=== PATIENT | male | born 1970 | race Caucasian/White ===

== ENCOUNTER 2016-12-15 13:04 | Inpatient (IN) | payer SELFPAY ==
--- NOTE | ~2016-12-15 | PA ---
Unit #: [id number] #: [id number] Patient: DEONNA SHEFFIELD [id number] [facility] [address] [place] [address] [id number] MR#: [id number] NAME: DEONNA SHEFFIELD ROOM: P132 Age: 46 Sex: M Admission Date: 12/15/2016 : 1970 Date of Assessment: Attending Physician: Eloina Escamilla M.D. Admitting Physician: Eloina Escamilla M.D. Primary Care Physician: Generic Doctor Not In System PSYCHIATRIC ASSESSMENT DATE OF SERVICE 12/15/2016. IDENTIFYING DATA Mr. Sheffield is a 46-year-old white male, who is a resident of [place], [place], and was referred to us from the [facility]. CHIEF COMPLAINT "I have seen all I want to see, I have done all that I want to do, I just don't care to be here anymore." HISTORY OF PRESENT ILLNESS A 46-year-old white male, who was transferred to us from the [facility], where he presented with increasing depression and voicing suicidal ideations, and the patient dropped off a letter to his ex-girlfriend's house and she called the police and the patient states that he chose to drive himself to the ER to avoid a scene at his grandmother's house and the patient stated that he wanted to shoot himself in the head, but did not want to mess up his grandmother's home and stated "I have been using my coping skills and have not had to use medicines for about 4 years. 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 He lives with his grandmother and states that he has not had any issues and was unable to identify any triggers or stressors, though he reports a long history of mood disorder and currently endorses worsening depression with disturbed sleep, psychomotor retardation, feelings of hopelessness and helplessness, and suicidal ideation. SUBSTANCE ABUSE HISTORY The patient denies any alcohol or drug abuse. PAST PSYCHIATRIC HISTORY The patient has not had any prior inpatient or outpatient psychiatric treatment. Review of the medical records indicate that currently he is not seeing a psychiatrist and is not taking any psychotropic medications. PAST MEDICAL HISTORY Diabetes mellitus. ALLERGIES Unit #: [id number] #: [id number] Patient: DEONNA SHEFFIELD No known medication allergies. PERSONAL AND SOCIAL HISTORY A 46-year-old white male, who reports that he is and lives with his grandmother and is employed and has fairly decent social support system. MENTAL STATUS EXAMINATION Middle-aged white male, who was casually dressed with fair personal hygiene, appears to be in no acute distress or discomfort. He was awake and alert on interaction with intact orientation to time, place, and person. His mood was anxious and depressed with a congruent affect. His speech was slow and goal directed. He reports having suicidal ideations, but denies any homicidal ideations and also denies any auditory or visual hallucinations. His insight and judgment remain significantly impaired. DIAGNOSTIC IMPRESSION Psychiatric: Major depressive disorder, recurrent, moderate, without psychotic features. Medical: Diabetes mellitus, hypertension. Stressors: Moderate psychosocial stressors. TREATMENT PLAN 1. The patient has presented with a history of mood disorder and has been decompensating and will need inpatient hospitalization for safety and stabilization. We will start him back on his home medications and we will adjust the medications and monitor response. 2. Supportive therapy was provided to the patient. 3. Safe, structured, and nourishing environment will be provided. ESTIMATED LENGTH OF STAY 5 to 7 days. ABILITY TO HELP SELF Limited. WILLINGNESS TO HELP SELF The patient appears to be willing to help self. STRENGTHS 1. Communicative. 2. Cooperative. PROBLEMS 1. Chronic dysphoric symptoms. 2. Poor social support system. DISCHARGE CRITERIA This will be contingent upon the patient's ability to show resolution of his depression and anxiety and his ability to stay safe to himself and others, particularly after discharge from the hospital. Dictated by... Eloina Escamilla M.D. RAFAT/adan Unit #: [id number] #: [id number] Patient: DEONNA SHEFFIELD TD: 12/16/2016 14:57 JOB #: [id number] PSYCHIATRIC ASSESSMENT X Eloina Escamilla MD PSYCHIATRIC ASSESSMENT
--- NOTE | ~2016-12-15 | HP ---
Unit #: [id number] #: [id number] Patient: DEONNA SHEFFIELD [id number] [place] [address] [id number] I MR#: [id number] NAME: DEONNA SHEFFIELD. ROOM: P132 Age: 46 Sex: M Admission Date: 12/15/2016 : 1970 Attending Physician: Eloina Escamilla M.D. Admitting Physician: Eloina Escamilla M.D. Primary Care Physician: Generic Doctor Not In System HISTORY AND PHYSICAL HISTORY OF PRESENT ILLNESS Deonna is a 46 year old admitted to [address] [place] [address] with depression and verbalizing wanting to hurt himself. PAST MEDICAL HISTORY 1. Obesity. 2. Diabetes mellitus. 3. History of cat scratch fever. PAST SURGICAL HISTORY 1. Cervical disc. 2. T & A. ALLERGIES No known drug allergies. SOCIAL HISTORY Smokes E-cigarettes, drinks alcohol socially. Denies illicit drug use. FAMILY HISTORY Medically noncontributory. REVIEW OF SYSTEMS CONSTITUTIONAL: No fever or chills. HEENT: Denies any sore throat, ear pain or runny nose. CARDIOVASCULAR: Denies chest pain, irregular heart rhythm or palpitations. CHEST: Denies shortness of breath or cough. No hemoptysis. GASTROINTESTINAL: Denies nausea, vomiting, diarrhea or chronic constipation. ENDOCRINE: Denies history of increased thirst or urination. No recent significant weight loss or gain. GENITOURINARY: Denies dysuria, frequency, or hematuria. SKIN: Denies any rashes. HEMATOLOGIC: Denies history of increased bleeding or bruising. MUSCULOSKELETAL: Denies any hot, swollen joints. No generalized muscle pain. NEUROLOGIC: Denies problems with vision or speech. No frequent, severe headaches. No numbness, tingling or weakness in any extremities. Denies loss of bladder or bowel control. CURRENT MEDICATIONS 1. Desyrel 100 mg q.h.s. Unit #: [id number] #: [id number] Patient: DEONNA SHEFFIELD 2. Vistaril p.r.n. 3. Milk of Magnesia p.r.n. 4. Maalox p.r.n. 5. Tylenol p.r.n. 6. Nicotine patch 14 mg daily PHYSICAL EXAMINATION GENERAL: Alert, obese, in no apparent distress. VITAL SIGNS: Blood pressure 140/70, heart rate 88, respirations 16, temperature 98.6. WEIGHT: 140 pounds. HEIGHT: 5'9". SKIN: Warm and dry without rash or lesion. HEENT: Normocephalic. TMs not viewed. Oral and nasal passages clear. Conjunctivae clear. Pupils equal, round and reactive to light and accommodation. Extraocular movements intact. NECK: Supple without lymphadenopathy or thyromegaly. HEART: Regular rate and rhythm without murmur. LUNGS: Clear. ABDOMEN: Soft, nontender. : Not done. EXTREMITIES: No evidence of cyanosis, clubbing or edema. Moves all extremities without focal deficit. NEUROLOGICAL: Grossly within normal limits. Cranial Nerves: II: Visual manzo are intact. III, IV AND : Extraocular movements are intact. Pupils are equal, round and reactive to light. V: Facial sensation is grossly normal. VII: Facial movements and expression are normal. VIII: Auditory acuity grossly intact. IX, X: Uvula is midline. Phonation is normal. XI: Patient shrugs shoulders and turns head normally. XII: Tongue protrudes in the midline. Sensory and Motor Function: Sensory and motor sensation is grossly normal. Motor: moves all extremities well. Coordination: Gait is normal. Deep Tendon Reflexes: Intact. IMPRESSION 1. Psychiatric admission. 2. Diabetes mellitus, diet controlled. RECOMMENDATIONS PSYCHIATRIC: Per psychiatrist. MEDICAL: I see no contraindications to participating in facility's activities. MEDICAL PROGNOSIS Good. MEDICAL CONDITION Stable. Dictated by... Merly Rdz P.A.-C. for Scot Scott M.D. Unit #: [id number] #: [id number] Patient: DEONNA SHEFFIELD ALEJO/arturo TD: 12/15/2016 20:24 JOB #: [id number] HISTORY AND PHYSICAL X Merly Rdz X HISTORY AND PHYSICAL
--- NOTE | ~2016-12-15 | PN ---
Unit #: [id number] #: [id number] Patient: DEONNA SHEFFIELD [id number] [facility] [address] [place] [address] [id number] I MR#: [id number] NAME: DEONNA SHEFFIELD. ROOM: P132 Age: 46 Sex: M Admission Date: 12/15/2016 : 1970 Attending Physician: Eloina Escamilla M.D. Admitting Physician: Eloina Escamilla M.D. Primary Care Physician: Generic Doctor Not In System [facility] PROGRESS NOTES DATE 12/17/2016 DISCUSSION Mr. Sheffield is a 46-year-old white male who was seen today and chart was reviewed and case was discussed with the staff. He has been doing fairly well with no agitation, irritability and has been cooperative with treatment recommendations as he has been taking the medications and tolerating them fairly well. MENTAL STATUS EXAMINATION Middle-aged white male who was casually dressed with fair personal hygiene and appears to be in no acute distress or discomfort. He was awake and alert on interactions with intact orientation. His mood was anxious with congruent affect. He denies any suicidal or homicidal ideations and also denies any auditory or visual hallucinations. His insight and judgement remains slightly impaired. TREATMENT PLAN 1. Will continue him on his current medications and treatment protocol. Will monitor his response and make further adjustments as needed. 2. Will continue to follow up. Dictated by... Eloina Escamilla M.D. IAA/marlena TD: 12/17/2016 17:54 JOB #: [id number] Unit #: [id number] #: [id number] Patient: DEONNA SHEFFIELD [facility] PROGRESS NOTES X Eloina Escamilla MD PROGRESS NOTE
--- NOTE | ~2016-12-15 | PN ---
Unit #: [id number] #: [id number] Patient: DEONNA SHEFFIELD [id number] [facility] [address] [place] [address] [id number] I MR#: [id number] NAME: DEONNA SHEFFIELD. ROOM: P132 Age: 46 Sex: M Admission Date: 12/15/2016 : 1970 Attending Physician: Eloina Escamilla M.D. Admitting Physician: Eloina Escamilla M.D. Primary Care Physician: Generic Doctor Not In System [facility] PROGRESS NOTES DATE 12/19/2016 DISCUSSION Mr. Sheffield is a 46-year-old, white male who was seen today and chart was reviewed and case was discussed with the staff. He has been anxious though has been doing much better with his depressive symptoms and has been calm and cooperative with the treatment recommendations. He has been taking the medication and tolerating them fairly well. MENTAL STATUS EXAM Middle-aged white male who was casually dressed with fair personal hygiene, appears to be in no acute distress or discomfort. He was awake and alert on interaction with intact orientation. His mood was anxious with congruent affect. He denies any suicidal or homicidal ideation. Also, denies any auditory or visual hallucinations. His insight and judgement remains slightly impaired. TREATMENT PLAN 1. We will continue him on his current treatment protocol. We will monitor his response to the medication and make further adjustments as needed. 2. We will continue to follow up. Dictated by... Flor Azevedo/arturo TD: 12/21/2016 03:45 JOB #: [id number] Unit #: [id number] #: [id number] Patient: DEONNA SHEFFIELD [facility] PROGRESS NOTES X Eloina Escamilla MD X PROGRESS NOTE
--- NOTE | ~2016-12-15 | PN ---
Unit #: [id number] #: [id number] Patient: DEONNA SHEFFIELD [id number] [facility] [address] [place] [address] [id number] I MR#: [id number] NAME: DEONNA SHEFFIELD. ROOM: P132 Age: 46 Sex: M Admission Date: 12/15/2016 : 1970 Attending Physician: Eloina Escamilla M.D. Admitting Physician: Eloina Escamilla M.D. Primary Care Physician: Generic Doctor Not In System [facility] PROGRESS NOTES DATE December 18, 2016 DISCUSSION Mr. Sheffield is a 46-year-old white male, who was seen today and chart was reviewed and the case was discussed with the staff. He has been anxious, withdrawn, and rather seclusive to himself. Meanwhile, he has been cooperative with the treatment recommendations and he has been taking the medications and tolerating them fairly well. MENTAL STATUS EXAMINATION Middle-aged white male, who was casually dressed with fair personal hygiene and appears to be in no acute distress or discomfort. He was awake and alert on interaction with intact orientation. His mood was anxious with a congruent affect. His speech is slow and goal-directed. He denies any suicidal or homicidal ideations, and also denies any auditory or visual hallucinations. His insight and judgment remain slightly impaired. TREATMENT PLAN 1. We will continue him on his current medications and treatment protocol, and will monitor his response to the medications, and make further adjustments as needed. 2. We will continue to followup. Dictated by... Flor Azevedo/vicky TD: 12/20/2016 12:55 JOB #: [id number] Unit #: [id number] #: [id number] Patient: DEONNA SHEFFIELD [facility] PROGRESS NOTES X Eloina Escamilla MD PROGRESS NOTE
--- NOTE | ~2016-12-15 | PN ---
Unit #: [id number] #: [id number] Patient: DEONNA SHEFFIELD [id number] [facility] [address] [place] [address] [id number] I MR#: [id number] NAME: DEONNA SHEFFIELD ROOM: P132 Age: 46 Sex: M Admission Date: 12/15/2016 : 1970 Attending Physician: Eloina Escamilla M.D. Admitting Physician: Eloina Escamilla M.D. Primary Care Physician: Generic Doctor Not In System [facility] PROGRESS NOTES DATE December 16, 2016 DISCUSSION Mr. Sheffield is a 46-year-old white male, who was seen today and chart was reviewed and the case was discussed with the staff. He has been anxious, withdrawn, and rather seclusive to himself. Meanwhile, he has been cooperative with the treatment recommendations and he has been taking the medications and tolerating them fairly well with no side effects. MENTAL STATUS EXAMINATION Middle-aged white male, who was casually dressed with fair personal hygiene and appears to be in no acute distress or discomfort. He was awake and alert on interaction with intact orientation. His mood is anxious with a congruent affect. He denies any suicidal or homicidal ideations. His insight and judgment remain slightly impaired. TREATMENT PLAN 1. We will continue him on his current treatment protocol, and will monitor his response to the medications, and make further adjustments as needed. 2. We will continue to followup. Dictated by... Flor Azevedo/vicky TD: 12/17/2016 05:44 JOB #: [id number] [facility] PROGRESS NOTES X Eloina Escamilla MD PROGRESS NOTE
--- NOTE | ~2016-12-15 | DS ---
Unit #: [id number] #: [id number] Patient: DEONNA SHEFFIELD [id number] [facility] [address] [place] [address] [id number] I MR#: [id number] NAME: DEONNA SHEFFIELD. ROOM: P132 Age: 46 Sex: M Admission Date: 12/15/2016 : 1970 Discharge Date: 12/20/2016 Attending Physician: Eloina Escamilla M.D. Primary Care Physician: Generic Doctor Not In System DISCHARGE SUMMARY IDENTIFYING DATA Mr. Cosme is a 46-year-old white male who was brought to the hospital as a referral from [facility]. DISCHARGE DIAGNOSES Psychiatric: Major depressive disorder, recurrent, moderate, without psychotic features. Medical: Diabetes mellitus and hypertension. Stressors: Moderate psychosocial stressors. HISTORY OF PRESENT ILLNESS Please see initial psychiatric evaluation for details. PAST PSYCHIATRIC HISTORY Please see initial psychiatric evaluation for details. PAST MEDICAL HISTORY Please see initial psychiatric evaluation for details. HOSPITAL COURSE The [facility] and was oriented to the hospital environment. Routine p.r.n. medications were initiated, and he was started back on his home medications and was exhibiting significant depressive symptoms upon presentation and therefore, Effexor and BuSpar were initiated and he was closely monitored. He was noticed to be actively trying to mask and minimize his symptoms and his suicidal thoughts, and was constantly focused and wanting to leave and was pushing, and has already been on 72-hours hold from the emergency room, which was maintained and once that , he refused to accept further inpatient stay treatment and was wanting to go home, but was willing to continue treatment on an outpatient basis and as such, it was decided that he will be maintained on his current treatment protocol. We will be discharged home and will continue treatment. DISCHARGE MEDICATIONS Effexor XR 75 mg in the evening for depression and BuSpar 10 mg b.i.d. for anxiety. DISCHARGE CONDITION Stable. PROGNOSIS Fair. Unit #: [id number] #: [id number] Patient: DEONNA SHEFFIELD Dictated by... Flor Azevedo/donatol TD: 12/20/2016 07:05 JOB #: [id number] DISCHARGE SUMMARY X Eloina Escamilla MD DISCHARGE SUMMARY
[2016-12-16 10:08] LABS: THYROID STIMULATING HORMONE 1.44 uIU/ml (0.34-5.60)
[2016-12-16 10:14] LABS: FREE THYROXIN (T4) 0.78 ng/dL (0.58-1.64)
== END 2016-12-20 10:20 | disposition home or self-care (01) | DRG 885 ==
LOC: P1S 13:04
PROVIDERS: Psychiatry & Neurology Psychiatry
DX: F33.1 Major depressive disorder, recurrent, moderate (principal); E11.9 Type 2 diabetes mellitus without complications; I10 Essential (primary) hypertension; F41.9 Anxiety disorder, unspecified; E66.9 Obesity, unspecified; F17.200 Nicotine dependence, unspecified, uncomplicated
CPT/HCPCS: 83036; 84439; 84443